=== PATIENT | female | born 1980 | race Caucasian/White ===

== ENCOUNTER 2017-12-19 12:37 | Inpatient (IN) | payer OTHER ==
[~2017-12-19] VITALS: Ht 170.2 cm; Wt 97.1 kg
[~2017-12-19 12:37] MED LIST: PREN-127 PO
[2017-12-19] MEDS ORDERED: OXYTOCIN 30 UNIT/D5LR 500 ML 500 ML IV PRN (12:52)
[2017-12-19] MEDS ORDERED: FAMOTIDINE(*) 20MG/50ML PREMIX 50 ML IVPB PRN (12:52)
[2017-12-19] MEDS ORDERED: LR(*) 1000 ML BAG 1,000 ML IV SCH (12:52)
[2017-12-19] MEDS ORDERED: LIDOCAINE/SOD BICARB 8.4% SYR SC PRN (12:55)
[2017-12-19] MEDS ORDERED: METOCLOPRAMIDE 10 MG/2 ML SDV IVP PRN (12:55)
[2017-12-19] MEDS ORDERED: LIDOCAINE 1% LOCAL 300 MG/30ML INJ PRN (12:55)
[2017-12-19] MEDS ORDERED: fentaNYL CITR 100 MCG/2 ML AMP IVP PRN (12:55)
[2017-12-19 14:15] LABS: PLATELET COUNT, AUTOMATED 105 K/uL (150-450)
[2017-12-19 15:16] VITALS: BP 135/87; Ht 170.2 cm; Wt 97.1 kg
--- NOTE | 2017-12-19 15:16 | History & Physical ---
History of Present Illness Age of Patient: 37 : 4 Para or TPAL: 3003 EDC per LMP: Dec 20, 2017 EDC per U/S: Dec 20, 2017 Estimated Gestational Age: 39.6 Chief Complaint painful uterine contractions History of Present Illness Ms. Beverly is a 37yo at 39.6 weeks by first trimester ultrasound who presents to labor and delivery with complaint of painful uterine contractions. They start this morning and became increasingly painful. No LOF, no PVB. Good movement. She reports she otherwise feels well. Denies ONEAL, RUQ pain, N/V , scotomata. Antepartum Course: -AMA, declined aneuploidy -Rh negative, received rhogam 10/01/2017 History Patient's Blood Type: A Negative Rubella Status: Immune Group B Strep Screen: Negative Miscellaneous Screens/Cultures: RPR NR, Hep B SAg negative Obstetrical History: FT x 3, 7' 16" largest baby, all uncomplicated Past Medical History: Distant history of abnormal paps, last pap 11/06/16 wnl. 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, no T/E/D Med Rec Home Meds Reported Medications Vits W-Ca,Fe,Fa(<1MG) ( VITAMINS) 1 Each Tablet, 1 EACH PO DAILY, TAB 12/02/17 Review of Systems Constitutional: No Fever, No Weight Loss, No Weight Gain, No Chills, No Night Sweats, No Other Neurological: No Syncope, No Confusion, No Weakness, No Dizziness, No Slurred Speech, No Other Eyes: No Vision Change, No Loss of Vision, No Photophobia, No Other ENT: No Hearing Loss, No Sinus Congestion, No Sore Throat, No Ear Ache, No Tinnitus, No Other Cardiovascular: No Chest Pain, No Palpitations, No Orthostatic Hypotension, No Other Respiratory: No Shortness of Breath, No Cough, No Wheezing, No Other Gastrointestinal: No Nausea, No Vomiting, No Diarrhea, No Dysphagia, No Constipation, No Early Satiety, No Hematemesis, No Hematochezia, No Melena, No Abdominal Pain, No Other Musculoskeletal: No Pain, No Sprain, No Strain, No Impaired Mobility, No Other Psychiatric: No Depression, No Anxiety, No Other Exam General Exam Vital Signs afebrile, VSS General Apperance: Alert/Awake/No Acute Distress Neuro: No Gross deficits Eyes: Normal Extraocular Movement & Vison Cardiovascular: Regular Rate and Rhythm Respiratory: Clear to Auscultation Abdomen: Soft, Non-Tender, Non-Distended, Gravid - Non-Tender Extremities: No Cyanosis,Clubbing or Edema Integumentary: Skin Intact without Lesions or Rash Psychological: Alert & Oriented X3, Appropriate Mood & Affect Vaginal Discharge/Fluid?: Clear Fluid Cervical Dialation: 5 Cervical Effacement (%): 80 Cervical Consistency: Soft Cervical Position: Mid Station: -2 Presentation: Vertex Uterine Contractions(Q min): 3 Uterine Contraction Strength: Strong UC Resting Tone: Soft Fetus Feeling Movement?: Yes Estimated Weight(grams): 3700 Heart Tones: 150 Heart Tone Variabilty: Moderate FHT Accelerations: 15X15 FHT Decelerations: None FHT Category: I Medical Decision Making Data Points Result Diagram: 12/19/17 1355 Pre-Admit Course Medical Record Review: Yes VTE Prophylasis: Adult Pharmacological Contraindicati: Surgical Contraindication Mechanical Contraindications: Pt at Low Risk for VTE 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 status reassuring. GBS negative. -arom'd now -cefm/toco anticipate KENDRA TELLEZ MD Dec 19, 2017 15:16
[2017-12-19] MEDS ORDERED: HYDROCORTISONE 2.5% CR 30GM TB PR PRN (16:30)
[2017-12-19] MEDS ORDERED: ACETAMINOPHEN 325 MG TAB PO PRN (16:30)
[2017-12-19] MEDS ORDERED: APAP/HYDROCODONE 325/5 TAB PO PRN (16:30)
[2017-12-19] MEDS ORDERED: LANOLIN OINT 7 GM TUBE TP PRN (16:30)
[2017-12-19] MEDS ORDERED: MAGNESIUM HYDROXIDE* 30ML UDCP PO PRN (16:30)
[2017-12-19] MEDS ORDERED: GLYCERIN/WITCH HAZEL LEAF 1 PK TP PRN (16:30)
[2017-12-19] MEDS ORDERED: BENZOCAINE 20% 60 ML BTL TP PRN (16:30)
[2017-12-19] MEDS ORDERED: LOR5/325 PO (16:32)
[2017-12-19] MEDS ORDERED: IBUP800T37 PO (16:32)
--- NOTE | 2017-12-19 16:42 | OB Delivery Note ---
Delivery Note Vaginal Delivery Type: Spont. Vaginal Delivery Delivery Date: Dec 19, 2017 Delivery Time: 16:14 Estimated Gestational Age(wks): 39.6 Infant Sex: Female Infant Weight (gms): 3680 Repair Needed: Other (NONE) Estimated Blood Loss: 300 Notes: Ms. Beverly presented to labor and delivery at approximately 14:00 today with complaint of painful uterine contractions. status reassuring. GBS negative. Was admitted in labor with exam of 4cm/75% effaced/-2 station. Was re-examined at approximately 15:30 and found to be 5cm dilated, 80% effaced, -2 station. AROM at that time for clear fluid. She progressed on her own to fully dilated. After approximately 5 minutes of pushing she delivered a vigorous female infant over an intact perineum. The 's mouth and nares were suctioned with the bulb syringe and she was handed to her mother. After pulsations ceased the cord was doubly clamped and cut and a portion of cord blood was obtained as per protocol. The placenta was delivered spontaneously and intact. She uterus contracted well with pitocin and massage. The vulva, vagina, and perineum were inspected and found to be intact. The infant's apgars were 8 and 9. KENDRA TELLEZ MD Dec 19, 2017 16:42
[2017-12-19] MEDS: IBUPROFEN 800 MG TAB PO SCH (19:12)
[2017-12-19 19:45] VITALS: BP 118/79
[2017-12-19] MEDS: DOCUSATE CALCIUM 240 MG CAP PO SCH (22:11)
[2017-12-20 00:30] VITALS: BP 125/79
[2017-12-20] MEDS: IBUPROFEN 800 MG TAB PO SCH ×3 (02:55→16:27)
[2017-12-20 04:30] VITALS: BP 127/87
[2017-12-20] MEDS: DOCUSATE CALCIUM 240 MG CAP PO SCH (08:56)
[2017-12-20 09:00] VITALS: BP 122/70
[2017-12-20] MEDS ORDERED: DIPHTH/TETANUS/ACEL. PERTUSSIS IM ONLY ONE (09:00)
[2017-12-20] MEDS ORDERED: INFLUENZA VIRUS VAC 0.5 ML SYR IM ONLY ONE (09:00)
[2017-12-20] MEDS ORDERED: MULTIVITAMINS (PRENATAL) TAB PO SCH (09:00)
[2017-12-20] MEDS ORDERED: MEASLES,MUMP,RUBELLA VAC 0.5ML SUBQ ONE (09:00)
--- NOTE | 2017-12-20 09:13 | OB/GYN Progress Note ---
OB Subjective Progress Notes Subjective Patient reports that she feels well. Denies ONEAL, scotomata, RUQ pain, nausea/ emesis. is going well. Vaginal bleeding moderate. Voiding urine without difficulty. Desires discharge home today. GI: POS Flatus, NEG Nausea, NEG Vomiting, NEG Bowel Movement : Voiding Well, Vaginal Bleeding, Moderate Pain: Mild, Tolerating PO Pain Meds Neurological: No Headache, No Other Eyes: No Visual Disturbances OB Objective Physical Exam Vital Signs Date Time Temp Pulse Resp B/P (MAP) Pulse Ox O2 Delivery O2 Flow Rate FiO2 12/20/17 04:30 97.9 83 16 127/87 (100) Room Air General Appearance: Alert/Awake/No Acute Distress Neurological: No Gross deficits Eyes: Normal Extraocular Movement & Vison Cardiovascular: Regular Rate and Rhythm Respiratory: Clear to Auscultation Abdomen: Fundus Firm, Non-Tender Extremities: No Cyanosis,Clubbing or Edema Integumentary: Skin Intact without Lesions or Rash Psychological: Alert & Oriented X3, Appropriate Mood & Affect Result Diagram: 12/20/17 0617 Assessment and Plan 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 Noted to have mild thrombocytopenia. At initial labs platelet count was 170, at 28 weeks was 120, at admission was 107 and today, post- is 87. No clinical evidence of PEC, HELLP, TTP -- suspect gestational thrombocytopenia. Will repeat level at 6 weeks pp. Discussed with patient. Meeting all discharge criteria, plan for discharge home with 6 week pp follow-up. Discharge medications include ibuprofen and lortab. KENDRA TELLEZ MD Dec 20, 2017 09:13
--- NOTE | 2017-12-20 09:14 | OB/GYN Discharge Summary ---
Discharge Summary Reason for Hosp/Final Diag: (1) Spontaneous onset of labor Status: Resolved (2) care and examination of lactating mother Status: Acute Hospital Course & Plan: 37yo PPD 1 s/p . Noted to have mild thrombocytopenia. At initial labs platelet count was 170, at 28 weeks was 120, at admission was 107 and today, post- is 87. No clinical evidence of PEC, HELLP, TTP -- suspect gestational thrombocytopenia. Will repeat level at 6 weeks pp. Discussed with patient. Meeting all discharge criteria, plan for discharge home with 6 week pp follow-up. Discharge medications include ibuprofen and lortab. Lates Vital Signs Vital Signs Date Time Temp Pulse Resp B/P (MAP) Pulse Ox O2 Delivery O2 Flow Rate FiO2 12/20/17 04:30 97.9 83 16 127/87 (100) Room Air Weight (Pounds): 214 Result Diagram: 12/20/17 0617 Condition: Improved Discharge: Home Home Meds Active Scripts Ibuprofen (IBUPROFEN) 800 Mg Tablet, 800 MG PO Q8H for 30 Days, #90 TAB 1 Refill Prov:KENDRA TELLEZ MD 12/19/17 Hydrocodone Bit/Acetaminophen (HYDROCODON-ACETAMINOPHEN 5-325) 1 Each Tablet, 1- 2 EACH PO Q4H Y for PAIN for 7 Days, #30 TAB Prov:EKNDRA TELLEZ MD 12/19/17 Reported Medications Vits W-Ca,Fe,Fa(<1MG) ( VITAMINS) 1 Each Tablet, 1 EACH PO DAILY, TAB 12/02/17 [facility] [phone] Follow up in: 6 wks PP or PO Discharge Diet: As Tolerates Discharge Activity: As Tolerates, Pelvic Rest KENDRA TELLEZ MD Dec 20, 2017 09:14
== END 2017-12-20 18:30 | disposition home or self-care (01) | DRG 775 ==
LOC: OB 12:37
PROVIDERS: ADMIT Obstetrics & Gynecology; ATTEND Obstetrics & Gynecology
PROC: 10E0XZZ Delivery of Products of Conception, External Approach (ICD-10-PCS; principal; 2017-12-19)
PROC: 10907ZC Drainage of Amniotic Fluid, Therapeutic from Products of Conception, Via Natural or Artificial Opening (ICD-10-PCS; 2017-12-19)
PROC: 3E0334Z Introduction of Serum, Toxoid and Vaccine into Peripheral Vein, Percutaneous Approach (ICD-10-PCS; 2017-12-20)
DX: O99.12 Other diseases of the blood and blood-forming organs and certain disorders involving the immune mechanism complicating childbirth (principal); O36.0130 Maternal care for anti-D [Rh] antibodies, third trimester, not applicable or unspecified; D69.59 Other secondary thrombocytopenia; Z37.0 Single live birth; Z3A.39 39 weeks gestation of pregnancy
CPT/HCPCS: 36415; 85025; 85027; 85460; 85461; 86850; 86900; 86901; J2791; J3010